=== PATIENT | female | born 1945 | race African-American/Black ===

== ENCOUNTER 2017-04-21 15:54 | Inpatient (IN) | payer OTHER ==
[~2017-04-21] VITALS: Ht 160 cm; Wt 79.4 kg
--- NOTE | ~2017-04-21 | 2DMMODE ---
[facility] [address] [employer] [address] 2 D/M-MODE ECHOCARDIOGRAM Name: FRAUSTOMILAGROS Room #: 202-P ADM IN M.R.#: [id number] Admission: 04/21/17 Attend Phys: Jose Urbano, Discharge: Date of : 43 Date of Service: 04/22/17 1141 Report #: [id number] THIS REPORT FOR: //name// APPROVED REPORT Study performed: 04/22/2017 08:31:16 EXAM: Comprehensive 2D, Doppler, and color-flow Echocardiogram Patient Location: Bedside Room #: 202 Status: routine Other Information Study Quality: Adequate Indications Atrial Fibrillation 2D Dimensions RVDd: 34.09 mm LVEF(%): 64.67 (>50%) IVSd: 10.97 (7-11mm) LVOT Diam: 21.42 (18-24mm) LVDd: 41.62 mm PWd: 9.42 (7-11mm) Ascending Ao: 29.24 (22-36mm) LVDs: 27.06 (25-40mm) Aortic Root: 32.25 mm Santoyo's LVEF: 64.67 % Volumes Left Atrial Volume (Systole) Single Plane 4CH: 42.47 mL Single Plane 2CH: 61.56 mL LA ESV Index: 33.00 mL/m2 Aortic Valve AoV Peak Ramon.: 1.21 m/s AO Peak Gr.: 5.82 mmHg LVOT Max P.80 mmHg LVOT Max V: 0.97 m/s MACKENZIE Vmax: 2.91 cm2 Mitral Valve E/A Ratio: 1.1 MV Decel. Time: 277.52 ms MV E Max Ramon.: 0.74 m/s MV A Ramon.: 0.66 m/s MV PHT: 80.48 ms IVRT: 110.73 ms [facility] [address] [place] [address] 2 D/M-MODE ECHOCARDIOGRAM Name: MILAGROS FRAUSTO Room #: 202-P [facility] IN M.R.#: [id number] Admission: 04/21/17 Attend Phys: Jose Urbano, Discharge: Date of : 43 Date of Service: 04/22/17 1141 Report #: [id number] Pulmonary Valve PV Peak Ramon.: 1.17 m/s PV Peak Gr.: 5.49 mmHg Pulmonary Vein P Vein S: 0.49 m/s P Vein A: 0.42 m/s P Vein D: 0.38 m/s P Vein A Dur.: 115.3 msec P Vein S/D Ratio: 1.29 Tricuspid Valve TR Peak Ramon.: 2.32 m/s RAP Estimate: 5.00 mmHg TR Peak Gr.: 21.47 mmHg PA Pressure: 27.00 mmHg Left Ventricle The left ventricle is normal size. There is normal LV segmental wall motion. There is normal left ventricular wall thickness. The left ventricular systolic function is normal. The left ventricular ejection fraction is within the normal range. LVEF is 55-60%. Left ventricular filling pattern is normal for age. Right Ventricle The right ventricle is normal size. The right ventricular systolic function is normal. Atria The left atrium size is normal. The right atrium size is normal. Aortic Valve Aortic valve leaflets are mildly thickened. No aortic regurgitation is present. There is no aortic valvular stenosis. Mitral Valve The mitral valve is normal in structure. There is no mitral valve regurgitation noted. No evidence of mitral valve stenosis. Tricuspid Valve The tricuspid valve is normal in structure. There is trace tricuspid regurgitation. The right atrial pressure is estimated at 5 mmHg. There is no pulmonary hypertension. Pulmonic Valve The pulmonary valve is normal in structure. There is no pulmonic valvular regurgitation. [facility] [address] [place] [address] 2 D/M-MODE ECHOCARDIOGRAM Name: MILAGROS FRAUSTO Room #: 202-P ADM IN M.R.#: [id number] Admission: 04/21/17 Attend Phys: Jose Urbano, Discharge: Date of : 43 Date of Service: 04/22/17 1141 Report #: [id number] Great Vessels The aortic root is normal in size. IVC is normal in size and collapses >50% with inspiration. Pericardium There is no pericardial effusion. <Conclusion> The left ventricle is normal size. LVEF is 55-60%. Aortic valve leaflets are mildly thickened. No aortic regurgitation is present. There is no aortic valvular stenosis. The tricuspid valve is normal in structure. There is trace tricuspid regurgitation. The right atrial pressure is estimated at 5 mmHg. There is no pulmonary hypertension. The pulmonary valve is normal in structure. <ELECTRONICALLY SIGNED> By: Jass Cervantes MD 04/22/17 1141 1141 1141 Jass Cervantes MD /INF
--- NOTE | ~2017-04-21 | EKG ---
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[place]: bill sanchez : 1945 Requested By: Khari Myrick Order Number: [id number] MD: Eliseo Holland Measurements Intervals [place] Rate: 90 P: WI: QRS: 14 QRSD: 98 T: 136 QT: 351 QTc: 430 Interpretive Statements Atrial fibrillation Ventricular premature complex Borderline abnrm T, anterolateral leads No previous ECG available for comparison Electronically Signed On 04-24-2017 22:01:13 CDT by Eliseo Holland [email or web address] <ELECTRONICALLY SIGNED> By: Eliseo Holland MD 04/24/17 2201 D: 07/1632 32 Eliseo Holland MD /LIANE
--- NOTE | ~2017-04-21 | EKG ---
[place] [address] [address] 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
[2017-04-21] MEDS ORDERED: ASPIR 8181 M1 PO (16:16)
[2017-04-21] MEDS ORDERED: CARDIZEM CD240 MG PO (16:17)
[2017-04-21] MEDS ORDERED: LISINOPRIL20 MG PO (16:17)
[2017-04-21] MEDS ORDERED: HYDRALAZINE 2525 MG PO (16:19)
[2017-04-21 17:03] LABS: URINE BILIRUBIN NEGATIVE (Negative); URINE BLOOD 1+ (Negative); URINE COLOR YELLOW; URINE GLUCOSE-RANDOM* NEGATIVE (Negative); URINE KETONES 1+ (Negative); URINE NITRITE NEGATIVE (Negative); URINE PROTEIN (DIPSTICK) NEGATIVE (Negative); URINE UROBILINOGEN 0.2 E.U./dl (0.2-1.0)
[2017-04-21 17:12] LABS: ABSOLUTE NEUTROPHILS 4.7 thou/uL (1.4-8.2); BASOPHILS 0.6 % (0.0-2.0); EOSINOPHILS 0.4 % (0.0-3.0); HEMATOCRIT 40.2 % (37.0-47.0); HEMOGLOBIN 13.3 gm/dL (12.0-15.0); LYMPHOCYTES 19.5 % (24.0-44.0); MCV 81.8 fL (80.0-100.0); MONOCYTES 3.1 % (1.0-8.0); PLATELET COUNT 284 thou/uL (150-400); POLYS 76.4 % (36.0-66.0); RBC 4.91 mil/uL (4.20-5.00); RDW 16.2 % (10.5-14.5); WBC 6.1 thou/uL (4.0-11.0)
[2017-04-21 17:13] LABS: MANUAL DIFF NO
[2017-04-21 17:15] LABS: CASTS None Seen /LPF (None Seen); SQUAMOUS 4-10 Moderate /LPF (0-3); URINE RBC 3-10 Few /HPF (0-2); URINE WBC 0-5 Rare /HPF (0-5)
[2017-04-21 17:16] LABS: BACTERIA 1-9 Few /HPF (None Seen); CRYSTALS None Seen /LPF (None Seen)
[2017-04-21 17:19] LABS: ANION GAP 13 mmol/L (7-16); BUN 8 mg/dL (7-18); CALCIUM 9.5 mg/dL (8.5-10.1); CHLORIDE 102 mmol/L (98-107); CO2 23 mmol/L (21-32); CREATININE 0.8 mg/dL (0.6-1.0); GLUCOSE 141 mg/dL (74-106); SODIUM 138 mmol/L (136-145)
[2017-04-21 17:23] LABS: PROTIME 10.2 Seconds (9.3-11.4)
[2017-04-21 17:27] LABS: TROPONIN-I < 0.04 ng/mL (<0.04-0.07)
[2017-04-21 19:24] VITALS: BP 156/81
[2017-04-21 19:45] LABS: CHOLESTEROL 222 mg/dL (<200); HDL CHOLESTEROL 56 mg/dL (>40); LDL CHOLESTEROL 157 mg/dL (<100); MAGNESIUM 1.8 mg/dL (1.8-2.4); NT-PRO BRAIN NAT PEPTIDE 117 pg/mL (<300); PHOSPHORUS 3.6 mg/dL (2.5-4.9); TRIGLYCERIDE 46 mg/dL (<150); VLDL 9 mg/dL (<40)
[2017-04-21] MEDS ORDERED: FISH OIL 1,001000 M2 PO (20:17)
[2017-04-21] MEDS ORDERED: PEPCID20 MG PO (20:18)
[2017-04-21 20:46] VITALS: BP 160/86
[2017-04-21 23:47] VITALS: BP 150/88
[2017-04-22 01:18] LABS: ABSOLUTE NEUTROPHILS 3.5 thou/uL (1.4-8.2); BASOPHILS 0.8 % (0.0-2.0); EOSINOPHILS 0.9 % (0.0-3.0); HEMATOCRIT 37.9 % (37.0-47.0); HEMOGLOBIN 12.8 gm/dL (12.0-15.0); LYMPHOCYTES 45.2 % (24.0-44.0); MCH 27.1 pg (26.0-34.0); MCHC 33.6 g/dL (28.0-37.0); MCV 80.6 fL (80.0-100.0); MONOCYTES 7.2 % (1.0-8.0); PLATELET COUNT 285 thou/uL (150-400); POLYS 45.9 % (36.0-66.0); RBC 4.71 mil/uL (4.20-5.00); RDW 16.4 % (10.5-14.5); WBC 7.5 thou/uL (4.0-11.0)
[2017-04-22 01:26] LABS: MANUAL DIFF NO
[2017-04-22 01:39] LABS: ANION GAP 11 mmol/L (7-16); BUN 8 mg/dL (7-18); CALCIUM 8.8 mg/dL (8.5-10.1); CHLORIDE 106 mmol/L (98-107); CO2 25 mmol/L (21-32); CREATININE 0.7 mg/dL (0.6-1.0); GLUCOSE 85 mg/dL (74-106); POTASSIUM 3.6 mmol/L (3.5-5.1); SODIUM 142 mmol/L (136-145); TROPONIN-I < 0.04 ng/mL (<0.04-0.07)
[2017-04-22 03:08] VITALS: BP 149/70
[2017-04-22 08:00] VITALS: BP 147/84
[2017-04-22] MEDS ORDERED: PRADAXA150 MG PO (10:46)
[2017-04-22] MEDS ORDERED: TAMBOCOR 100 M100 M1 PO (10:47)
[2017-04-22 12:00] VITALS: BP 120/65
[2017-04-22 13:02] VITALS: BP 120/65
[2017-04-22 15:14] VITALS: BP 120/65
== END 2017-04-22 13:50 | disposition home or self-care (01) | DRG 308 ==
LOC: ER 15:54 → EROBS 18:26 → 2N 18:26
PROVIDERS: Emergency Medicine; Family Medicine
DX: I48.91 Unspecified atrial fibrillation (principal); J18.9 Pneumonia, unspecified organism; N12 Tubulo-interstitial nephritis, not specified as acute or chronic; K21.9 Gastro-esophageal reflux disease without esophagitis; I10 Essential (primary) hypertension; G47.62 Sleep related leg cramps; E78.5 Hyperlipidemia, unspecified; Z79.899 Other long term (current) drug therapy; Z88.6 Allergy status to analgesic agent; Z88.8 Allergy status to other drugs, medicaments and biological substances
CPT/HCPCS: 10081

== ENCOUNTER 2017-09-22 13:10 | Emergency (ER) | payer OTHER ==
[~2017-09-22] VITALS: Ht 160 cm; Wt 77.1 kg
--- NOTE | ~2017-09-22 | EKG ---
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: [facility] : 1945 Requested By: Rusty Guaman Order Number: [id number] MD: Eliseo Holland Measurements Intervals [place] Rate: 69 P: 53 ME: 256 QRS: 2 QRSD: 123 T: 68 QT: 418 QTc: 448 Interpretive Statements Sinus rhythm Prolonged ME interval Probable left atrial enlargement LVH with secondary repolarization abnormality Compared to ECG 08/20/2017 00:09:23 No significant changes Electronically Signed On 09-22-2017 21:19:29 RELIEF WORKER by Eliseo Holland [email or web address] <ELECTRONICALLY SIGNED> By: Eliseo Holland MD 09/22/17 2119 1350 1350 Eliseo Holland MD /LIANE
[~2017-09-22 13:10] MED LIST: ASPIR 8181 M1 PO; CARDIZEM CD240 MG PO; FISH OIL 1,001000 M2 PO; HYDRALAZINE 2525 MG PO; HYDROCHLOROTHIA25 M2 PO; LISINOPRIL20 MG PO; LOPRESSOR50 PO; PEPCID20 MG PO; PRADAXA150 MG PO; TAMBOCOR 100 M100 M1 PO
[2017-09-22 13:40] LABS: HEMATOCRIT 40.8 % (37.0-47.0); HEMOGLOBIN 13.4 gm/dL (12.0-15.0); MCH 26.9 pg (26.0-34.0); MCHC 32.8 g/dL (28.0-37.0); RBC 4.98 mil/uL (4.20-5.00); RDW 16.7 % (10.5-14.5); WBC 6.4 thou/uL (4.0-11.0)
[2017-09-22 13:47] LABS: CALCIUM 9.3 mg/dL (8.5-10.1); CREATININE 0.8 mg/dL (0.6-1.0); POTASSIUM 3.3 mmol/L (3.5-5.1)
[2017-09-22] MEDS ORDERED: FISH OIL 1,001000 M2 PO (13:57)
[2017-09-24] MEDS ORDERED: HYDRALAZINE 2525 MG PO (08:39)
[2017-09-24] MEDS ORDERED: PEPCID20 MG PO (08:41)
== END 2017-09-22 15:36 | disposition home or self-care (01) ==
LOC: ER 13:10
PROVIDERS: Physician Assistant
DX: I10 Essential (primary) hypertension (principal); K21.9 Gastro-esophageal reflux disease without esophagitis; Z88.5 Allergy status to narcotic agent; Z88.8 Allergy status to other drugs, medicaments and biological substances

== ENCOUNTER 2019-04-17 12:05 | Emergency (ER) | payer OTHER ==
[~2019-04-17] VITALS: Ht 160 cm; Wt 74.8 kg
[2019-04-17] MEDS ORDERED: MOBIC7.5 MG PO (13:06)
[2019-04-17] MEDS ORDERED: FLONASE 0.05%50 MCG NASAL ×2 (13:06→13:36)
[2019-04-17 13:33] VITALS: BP 175/75
[2019-04-17] MEDS ORDERED: ZYRTEC10 MG PO (13:38)
[2019-04-17] MEDS ORDERED: APAP650 PO (13:38)
--- NOTE | 2019-04-17 16:26 | EKG ---
[facility] [place] [address] ELECTROCARDIOGRAM REPORT Name: ORLANDO FRAUSTOIE Elias [facility] [id number] ������������������ Admission: 04/17/19 ������������������ Attend Phys: Discharge: 04/17/19 ������������������ Date of : 43 Report #: [id number] ����������������������������������������������������������������� [id number] THIS REPORT FOR: //name// 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: [facility] : 1945 Requested By: Samantha Lai Order Number: [id number] MD: Efren Singh Measurements Intervals [place] Rate: 68 P: 32 AR: 321 QRS: -10 QRSD: 125 T: 65 QT: 453 QTc: 482 Interpretive Statements Sinus rhythm Prolonged AR interval Nonspecific intraventricular conduction delay Nonspecific ST and T wave abnormality Compared to ECG 10/01/2017 20:45:47 No significant change was found Electronically Signed On 04-17-2019 16:26:40 CDT by Efren Singh [email or web address] ��������������������������������������������� <ELECTRONICALLY SIGNED> ���������������������������������������� By: Efren Singh MD, [facility] ��������������������������������������������� 04/17/19 1626 1243 1243 Efren Singh MD, [facility] /EPI
== END 2019-04-17 13:33 | disposition home or self-care (01) ==
LOC: ER 12:05
DX: H93.11 Tinnitus, right ear (principal); G89.29 Other chronic pain; K21.9 Gastro-esophageal reflux disease without esophagitis; I10 Essential (primary) hypertension; I48.91 Unspecified atrial fibrillation; Z88.5 Allergy status to narcotic agent; Z88.8 Allergy status to other drugs, medicaments and biological substances

== ENCOUNTER 2020-06-13 18:28 | Inpatient (IN) | payer OTHER ==
[~2020-06-13] VITALS: Ht 160 cm; Wt 64.8 kg
[~2020-06-13 18:28] MED LIST changes: +APAP650 PO; +FLONASE 0.05%50 MCG NASAL; +MOBIC7.5 MG PO; +ZYRTEC10 MG PO
[2020-06-13 18:57] VITALS: BP 166/64
[2020-06-13 19:35] LABS: URINE BILIRUBIN NEGATIVE (Negative); URINE BLOOD TRACE (Negative); URINE CLARITY CLEAR; URINE COLOR YELLOW; URINE GLUCOSE-RANDOM* NEGATIVE (Negative); URINE KETONES NEGATIVE (Negative); URINE PROTEIN (DIPSTICK) 1+ (Negative); URINE SPECIFIC GRAVITY 1.015 (1.005-1.035); URINE UROBILINOGEN 0.2 E.U./dl (0.2-1.0)
[2020-06-13 19:36] LABS: URINE LEUKOCYTES-REFLEX 1+ (Negative); URINE NITRITE-REFLEX POSITIVE (Negative)
[2020-06-13 19:46] LABS: BACTERIA-REFLEX >30 Many /HPF (None Seen); CASTS None Seen /LPF (None Seen); CRYSTALS None Seen /LPF (None Seen); SQUAMOUS 0-3 Few /LPF (0-3); URINE RBC 0-2 Rare /HPF (0-2); URINE WBC-REFLEX 6-15 Few /HPF (0-5)
[2020-06-13 19:47] LABS: HEMATOCRIT 36.2 % (37.0-47.0); HEMOGLOBIN 12.2 gm/dL (12.0-15.0); MCH 28.3 pg (26.0-34.0); MCHC 33.7 g/dL (28.0-37.0); PLATELET COUNT 175 thou/uL (150-400); RBC 4.31 mil/uL (4.20-5.00); RDW 14.8 % (10.5-14.5); WBC 2.1 thou/uL (4.0-11.0)
[2020-06-13] MEDS ORDERED: TOPROL XL100 MG PO (19:50)
[2020-06-13] MEDS ORDERED: TIAZAC360 M1 PO (19:50)
[2020-06-13 19:54] LABS: CALCIUM 8.3 mg/dL (8.5-10.1); CREATININE 0.7 mg/dL (0.6-1.0)
[2020-06-13 20:00] LABS: ALBUMIN 3.6 g/dL (3.4-5.0); TOTAL BILIRUBIN 0.4 mg/dL (0.2-1.0); TOTAL PROTEIN 7.4 g/dL (6.4-8.2)
[2020-06-13 20:28] LABS: ABSOLUTE NEUTROPHILS 0.9 thou/uL (1.4-8.2); ANISOCYTOSIS 1+; ATYPICAL LYMPHS 1 %
[2020-06-13 22:19] VITALS: BP 138/67
[2020-06-13 22:43] VITALS: BP 146/59
[2020-06-13 23:00] VITALS: BP 164/74
[2020-06-14] VITALS (7 sets, daily range): BP systolic 97–178; BP diastolic 50–82
[2020-06-14 04:01] LABS: HEMOGLOBIN 11.9 gm/dL (12.0-15.0)
[2020-06-14 04:03] LABS: CALCIUM 7.8 mg/dL (8.5-10.1); CREATININE 0.7 mg/dL (0.6-1.0); MAGNESIUM 1.6 mg/dL (1.8-2.4); POTASSIUM 3.3 mmol/L (3.5-5.1)
[2020-06-14 04:08] LABS: HEMATOCRIT 35.1 % (37.0-47.0); MCH 28.5 pg (26.0-34.0); RBC 4.17 mil/uL (4.20-5.00); RDW 14.8 % (10.5-14.5)
[2020-06-14 04:38] LABS: WBC 1.8 thou/uL (4.0-11.0)
--- NOTE | 2020-06-14 04:55 | NUR ---
PATIENT WAS A NEW ADMISSION TO THE UNIT THIS SHIFT. SHE ARRIVED PEMA CART FROM THE ER AND WAS ABLE TO AMBULATE TO THE BED WITH ASSISTANCE INCIDENT FREE. PATIENT IS FULLY ALERT AND ORIENTED AND ABLE TO PARTICIPATE FULLY IN ADMISSION. NURSE TO COMPLETE THE ADMISSION PROCESS AND INITIATE PLAN OF CARE.
--- NOTE | 2020-06-14 08:20 | NUR ---
AT APPROXIMATELY 0330 PATIENTS BRADYCARDIA STARTED FALLING INTO MID TO LOW 30'S. PATIENT ASSYMPTOMATIC WITH BLOOD PRESSURES HYPERTENSIVE. PROVIDER CONTACTED WITH NURSE INSTRUCTED TO CLOSELY MONITOR FOR CHANGES IN PATIENTS STATUS. ROUTINE CONSULT PLACED TO CARDIOLOGY THIS MORNING. CONTINUE PLAN OF CARE.
--- NOTE | 2020-06-14 11:36 | EKG ---
[facility] [place] [address] ELECTROCARDIOGRAM REPORT Name: MILAGROS FRAUSTO Room #: 219-P ADM IN M.R.#: [id number] Admission: 06/13/20 Attend Phys: Leon Vogel MD Discharge: Date of : 43 Report #: [id number] THIS REPORT FOR: cc: Luz Dasilva MD, Kelly A. 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[place] : 1945 Requested By: Thelma Lambert Order Number: [id number] MD: Efren Singh Measurements Intervals [place] Rate: 53 P: 52 TN: 278 QRS: -21 QRSD: 136 T: 94 QT: 559 QTc: 525 Interpretive Statements Sinus rhythm Prolonged TN interval Probable left atrial enlargement Nonspecific ST and T wave abnormality Compared to ECG 04/17/2019 12:43:39 No significant change was found Electronically Signed On 06-14-2020 11:36:41 CDT by Efren Singh [email or web address] <ELECTRONICALLY SIGNED> By: Efren Singh MD, [facility] 06/14/20 1136 10 10 Efren Singh MD, [facility] /EPI
--- NOTE | 2020-06-14 19:57 | NUR ---
ASSUMMED PT CARE AT APPROXIMATELY 0700. PT A&O X4. ASSESSMENT CHARTED. FALL PRECAUTIONS IN PLACE. PT DENIES HAVING CHEST PAIN. PT DENIES HAVING ACUTE PAIN. PT DENIES HAVING SOB. ELECTROLYTE PROTOCOL FOLLOWED. PT AMBULATES STEADY C STANDBY. PT HAVING FREQUENT LOOSE STOOLS IN AM. INFORMED DR. ECHLOS. NEW ORDERS IMPLEMENTED. LAST LOOSE BM AT APPROXIMATELY 1400. EDUCATED PT AND PT'S FAMILY ABOUT POC. PT AND PT'S FAMILY STATED UNDERSTANDING AND DENIED HAVING FURTHER QUESTIONS. VITAL SIGNS STABLE. PT DENIES HAVING FURTHER CONCERNS. PT COMFORTABLE IN BED.
[2020-06-14 23:06] LABS: HEMOGLOBIN 11.7 g/dL (11.1-15.9)
[2020-06-15] VITALS (7 sets, daily range): BP systolic 168–181; BP diastolic 67–83
[2020-06-15 04:09] LABS: CALCIUM 7.5 mg/dL (8.5-10.1); CREATININE 0.6 mg/dL (0.6-1.0); POTASSIUM 4.1 mmol/L (3.5-5.1)
[2020-06-15 04:20] LABS: HEMATOCRIT 36.8 % (37.0-47.0); HEMOGLOBIN 12.3 gm/dL (12.0-15.0); MCH 28.5 pg (26.0-34.0); MCHC 33.4 g/dL (28.0-37.0); MCV 85.2 fL (80.0-100.0); PLATELET COUNT 163 thou/uL (150-400); RBC 4.32 mil/uL (4.20-5.00); RDW 15.1 % (10.5-14.5); WBC 3.2 thou/uL (4.0-11.0)
[2020-06-15 05:57] LABS: ABSOLUTE NEUTROPHILS 0.3 thou/uL (1.4-8.2)
[2020-06-15 05:58] LABS: OVALOCYTES OCCASIONAL; POIKILOCYTOSIS 1+; SCHISTOCYTES 1+
[2020-06-15 05:59] LABS: BURR CELLS FEW
--- NOTE | 2020-06-15 11:57 | EKG ---
[facility] [place] [address] ELECTROCARDIOGRAM REPORT Name: MILAGROS FRAUSTO Room #: 219-P ADM IN M.R.#: [id number] Admission: 06/13/20 Attend Phys: Leon Vogel MD Discharge: Date of : 43 Report #: [id number] THIS REPORT FOR: cc: Luz Dasilva MD, Kelly A. MD Lundgren,Efren Luevano MD [facility] ~ THIS REPORT FOR: //name// 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 : 1945 Requested By: Efren Singh Order Number: [id number] MD: Efren Singh Measurements Intervals [place] Rate: 65 P: 61 WV: 243 QRS: -14 QRSD: 107 T: 53 QT: 443 QTc: 461 Interpretive Statements Sinus rhythm Prolonged WV interval Probable left ventricular hypertrophy Abnormal T, anterior leads Baseline wander in lead(s) II,III,aVF Compared to ECG 06/13/2020 20:11:44 No significant change was found Electronically Signed On 06-15-2020 11:57:24 CDT by Efren Singh [email or web address] <ELECTRONICALLY SIGNED> By: Efren Singh MD, [facility] 06/15/20 1157 9 9 Efren Singh MD, [facility] /EPI
--- NOTE | 2020-06-15 17:14 | NUR ---
PT CARE ASSUMED AT 0700. ASSESSMENTS CHARTED. MEDICATION CHARTED. STOOL SAMPLE TAKEN TO LAB FOR C. DIFF. CULTURE. PT CLARIFIED DIET; NO MEAT EXCEPT FISH; VEGETABLES BUT NO GRAVY. PT WALKED AROUND THE UNIT. BM IN AM. PT DENIES PAIN. RAC IV D/C'D.
[2020-06-16 04:08] VITALS: BP 197/60
--- NOTE | 2020-06-16 06:10 | NUR ---
PATIENT UP TO THE BEDSIDE COMMODE.PT STATES THE IV FLUIDS IS MAKING HER PEE MORE.MONITOR SHOWS SINUS NIESHA.POC CONTINUED.
[2020-06-16 08:00] VITALS: BP 179/81
[2020-06-16 08:35] VITALS: BP 179/81
[2020-06-16] MEDS ORDERED: CARDIZEM CD 18180 M3 PO (12:27)
[2020-06-16 13:13] VITALS: BP 179/81
== END 2020-06-16 14:23 | disposition home or self-care (01) | DRG 690 ==
LOC: ER 18:28 → EROBS 21:30 → 2N 21:30
PROVIDERS: Internal Medicine; Nurse Practitioner Family; Physician Assistant; ADMIT Hospitalist; ATTEND Hospitalist
DX: N39.0 Urinary tract infection, site not specified (principal); A08.39 Other viral enteritis; E87.1 Hypo-osmolality and hyponatremia; I48.20 Chronic atrial fibrillation, unspecified; R00.1 Bradycardia, unspecified; I48.91 Unspecified atrial fibrillation; D72.819 Decreased white blood cell count, unspecified; K21.9 Gastro-esophageal reflux disease without esophagitis; E87.6 Hypokalemia; I10 Essential (primary) hypertension; R53.1 Weakness; E78.5 Hyperlipidemia, unspecified; I48.0 Paroxysmal atrial fibrillation; Z20.828 Contact with and (suspected) exposure to other viral communicable diseases; Z79.899 Other long term (current) drug therapy; Z88.5 Allergy status to narcotic agent; Z88.8 Allergy status to other drugs, medicaments and biological substances; Z87.891 Personal history of nicotine dependence
CPT/HCPCS: 10081

== ENCOUNTER → 2020-07-17 | Outpatient (CLI) | payer OTHER ==
[~2020-07-17] MED LIST changes: +CARDIZEM CD 18180 M3 PO; +TIAZAC360 M1 PO; +TOPROL XL100 MG PO
== END ==
LOC: SJCVC 10:08
PROVIDERS: ATTEND Internal Medicine Cardiovascular Disease
DX: R94.31 Abnormal electrocardiogram [ECG] [EKG] (principal); I44.0 Atrioventricular block, first degree; I10 Essential (primary) hypertension; I48.0 Paroxysmal atrial fibrillation; E78.2 Mixed hyperlipidemia; K21.9 Gastro-esophageal reflux disease without esophagitis; Z79.899 Other long term (current) drug therapy; Z87.891 Personal history of nicotine dependence

== ENCOUNTER → 2021-07-23 | Outpatient (CLI) | payer OTHER | LOC: SJCVCIMAG 10:50 | PROVIDERS: ATTEND Internal Medicine Cardiovascular Disease | DX: R94.31 Abnormal electrocardiogram [ECG] [EKG] (principal); I08.1 Rheumatic disorders of both mitral and tricuspid valves; I48.19 Other persistent atrial fibrillation; I10 Essential (primary) hypertension; K21.9 Gastro-esophageal reflux disease without esophagitis; E78.5 Hyperlipidemia, unspecified; Z88.5 Allergy status to narcotic agent; Z88.8 Allergy status to other drugs, medicaments and biological substances; Z79.899 Other long term (current) drug therapy; Z87.891 Personal history of nicotine dependence ==